=== PATIENT | female | born 1995 | race Caucasian/White ===

== ENCOUNTER 2018-11-21 20:00 | Emergency (ER) | payer MEDICAID ==
[~2018-11-21] VITALS: Ht 157.5 cm; Wt 65.8 kg
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
--- NOTE | 2018-11-21 20:15 | NUR ---
MARIA D CASTLE at bedside for MSE.
[2018-11-21] MEDS ORDERED: ACETAMINOPHEN ES 500 MG TABLET PO ONE (20:30)
[2018-11-21 20:43] LABS: *URINE HCG, QUAL NEGATIVE (NEGATIVE)
[2018-11-21] MEDS ORDERED: ACETAMINOPHEN ES 500 MG TABLET ONE (20:43)
--- NOTE | 2018-11-21 21:20 | NUR ---
Patient reported relief from pain at this time. In no acute distress. Continue to monitor.
--- NOTE | 2018-11-21 21:46 | NUR ---
Patient discharged to home in stable conditon. Written and verbal after care instructions given. Patient verbalizes understanding of instructions. Patient ambulated out of ER with steady gait. All belongings with patient.
[2018-11-21 21:47] VITALS: BP 138/86
== END 2018-11-21 21:48 | disposition home or self-care (01) ==
LOC: ER 20:03
DX: S80.01XA Contusion of right knee, initial encounter (principal); S00.83XA Contusion of other part of head, initial encounter; S16.1XXA Strain of muscle, fascia and tendon at neck level, initial encounter; S39.012A Strain of muscle, fascia and tendon of lower back, initial encounter; V49.9XXA Car occupant (driver) (passenger) injured in unspecified traffic accident, initial encounter; Y93.89 Activity, other specified; Y92.89 Other specified places as the place of occurrence of the external cause; Y99.8 Other external cause status
CPT/HCPCS: 72050; 72100; 84703; A4663; A9150